=== PATIENT | female | born 1960 | race Caucasian/White ===

== ENCOUNTER 2016-11-11 15:54 | Inpatient (IN) | payer MEDICARE, MEDICAID ==
[~2016-11-11] VITALS: Ht 165.1 cm; Wt 79.8 kg
[2016-11-11] MEDS ORDERED: POLYETHYLE17 GM/Dose PO (17:22)
[2016-11-11] MEDS ORDERED: NYSTATIN OINTME30 GM T (17:23)
[2016-11-11] MEDS ORDERED: TRILEPTAL150 MG PO (17:24)
[2016-11-11] MEDS ORDERED: COGENTIN0.5 MG PO (17:25)
[2016-11-11] MEDS ORDERED: CLARITIN10 MG PO (17:26)
[2016-11-11] MEDS ORDERED: THORAZINE200 MG PO (17:26)
[2016-11-11] MEDS ORDERED: LASIX20 MG PO (17:27)
[2016-11-11] MEDS ORDERED: PROTONIX40 MG PO (17:28)
[2016-11-11] MEDS ORDERED: NEURONTIN300 MG PO (17:29)
[2016-11-11] MEDS ORDERED: LIDODERM 5% PATC1 EA PO (17:32)
[2016-11-11] MEDS ORDERED: SPIRIVA -- 3018 MCG INH (17:33)
[2016-11-11] MEDS ORDERED: LISINOPRIL5 MG PO (17:34)
[2016-11-11] MEDS ORDERED: PROAIR HFA8.5 GM INH (17:35)
[2016-11-11] MEDS ORDERED: VITAMIN D50000 I3 PO (17:36)
[2016-11-11] MEDS ORDERED: JANUVIA50 MG PO (17:37)
[2016-11-11] MEDS ORDERED: METFORMIN1000 MG PO (17:38)
[2016-11-11 20:15] VITALS: BP 118/61
[2016-11-12 08:18] VITALS: BP 102/79
[2016-11-12 20:00] VITALS: BP 100/74
[2016-11-13 07:46] VITALS: BP 113/70
[2016-11-13 21:02] VITALS: BP 134/74
[2016-11-14 08:54] VITALS: BP 102/53
[2016-11-14 20:00] VITALS: BP 112/68
[2016-11-15 07:49] VITALS: BP 112/53
[2016-11-15 12:33] LABS: VITAMIN D, 25-HYDROXY 43.4 ng/mL (30-100)
[2016-11-15 20:10] VITALS: BP 115/54
[2016-11-16 07:10] LABS: BASO % 0.4 % (0.0-1.0); EOS # 0.1 10*3/uL (0.0-0.4); EOS % 1.4 % (1.0-4.0); HEMATOCRIT 39.7 % (37.0-47.0); HEMOGLOBIN 13.3 g/dl (12.0-16.0); LYMPH # 1.9 10*3/uL (1.3-4.4); LYMPH % 21.7 % (27.0-41.0); MEAN CELL VOLUME 84.8 fl (81.0-99.0); MEAN CORPUSCULAR HGB 28.4 pg (27.0-31.0); MEAN CORPUSCULAR HGB CONC 33.5 g/dl (33.0-37.0); MEAN PLATELET VOLUME 10.2 fl (9.6-12.3); MONO # 0.7 10*3/uL (0.1-1.0); MONO % 7.6 % (3.0-9.0); NEUT # 5.9 10*3/uL (2.3-7.9); NEUT % 68.5 % (47.0-73.0); PLATELET COUNT AUTOMATED 269 10*3/uL (130-400); RED BLOOD COUNT 4.68 10*6/uL (4.10-5.10); RED CELL DISTRI WIDTH 12.3 % (0-14.5); WHITE BLOOD COUNT 8.5 10*3/uL (4.8-10.8)
[2016-11-16 07:43] LABS: BUN 24 mg/dl (7-24); CARBON DIOXIDE 32 mmol/L (21-32); CHLORIDE 97 mmol/L (98-107); EST GLOM FILT AFRICAN AMERICAN > 60 ml/min; GLUCOSE 113 mg/dL (65-99); POTASSIUM 4.2 mmol/L (3.5-5.1); SODIUM 135 mmol/L (136-145)
[2016-11-16 07:44] VITALS: BP 108/67; BP 121/58
[2016-11-16 20:33] VITALS: BP 105/68
[2016-11-17 08:00] VITALS: BP 116/43
[2016-11-17] MEDS ORDERED: BENZTROPINE MESY1 MG PO (08:43)
[2016-11-17] MEDS ORDERED: DULOXETINE HCL60 MG PO (08:43)
[2016-11-17] MEDS ORDERED: LATU120T PO (08:43)
== END 2016-11-17 13:20 | disposition home or self-care (01) | DRG 885 ==
LOC: 3N 15:54
PROVIDERS: Internal Medicine Hospice and Palliative Medicine; Registered Nurse
DX: F31.63 Bipolar disorder, current episode mixed, severe, without psychotic features (principal); E11.40 Type 2 diabetes mellitus with diabetic neuropathy, unspecified; K22.10 Ulcer of esophagus without bleeding; K76.0 Fatty (change of) liver, not elsewhere classified; I10 Essential (primary) hypertension; F17.210 Nicotine dependence, cigarettes, uncomplicated; B35.1 Tinea unguium; J44.9 Chronic obstructive pulmonary disease, unspecified; K21.9 Gastro-esophageal reflux disease without esophagitis; F41.9 Anxiety disorder, unspecified; Z90.49 Acquired absence of other specified parts of digestive tract; Z96.652 Presence of left artificial knee joint; Z96.643 Presence of artificial hip joint, bilateral; Z88.8 Allergy status to other drugs, medicaments and biological substances; E55.9 Vitamin D deficiency, unspecified; J30.2 Other seasonal allergic rhinitis; Z71.6 Tobacco abuse counseling; Z79.84 Long term (current) use of oral hypoglycemic drugs; Z79.899 Other long term (current) drug therapy